=== PATIENT | female | born 1990 | race Caucasian/White ===

== ENCOUNTER 2019-12-26 07:07 | Inpatient (IN) | payer OTHER ==
[2019-12-26] VITALS (30 sets, daily range): BP systolic 89–127; BP diastolic 51–88; PULSE 63–91; TEMP 97.6–99.1
[~2019-12-26] VITALS: Ht 175.3 cm; Wt 71.8 kg
[~2019-12-26 07:07] MED LIST: MOTRIN 600600 MG/TAB PO; PERCOCET 325 MG1 TA2 PO; SENOKOT S 50 MG1 TAB PO
--- NOTE | 2019-12-26 07:20 | NUR ---
Pt arrives on unit ambulatory with spouse for induction of demise. Changed into clean gown. Pt updated on POC. Oriented to room. Admission assessement completed. Consents signed. IV started in LF. 0745-Dr. De La Vega on unit. Bedside US confirms no cardiac activity. Cytotec placed. See EMAR. Bed locked in low position. Call light within reach. No questions or concerns at this time.
--- NOTE | 2019-12-26 08:05 | NUR ---
Kailey with SS and LUIS ALFREDO Krameroracle analyst notified of pt admission.
[2019-12-26 09:32] LABS: BASO % 0.3 % (0.0-2.0); EOS # 0.1 (0.0-0.7); EOS % 1.2 % (0-4.0); GRAN # 4.2 (1.4-6.5); GRAN % 61.8 % (42.2-75.2); HEMOGLOBIN 11.4 g/dl (12.5-16.0); LYMPH % 28.7 % (20.0-51.0); MEAN CELL VOLUME 87 fl (80.0-100.0); MEAN CORPUSCULAR HEMOGLOBIN 29 pg (27.0-31.0); MEAN CORPUSCULAR HGB CONC 34 g/dl (33.0-37.0); MEAN PLATELET VOLUME 12.8 fl (7.4-10.4); MONO # 0.5 (0.1-0.6); MONO % 7.3 % (1.7-9.3); PLATELET COUNT 131 K/mm3 (130-400); RED BLOOD COUNT 3.88 M/mm3 (4.10-5.30); REDCELL DISTRIBUTION WIDTH-CV 12.3 % (11.5-14.5)
[2019-12-26 09:34] LABS: HEMATOCRIT 33.8 % (37.0-47.0)
[2019-12-26 09:45] LABS: ALBUMIN 4.1 gm/dL (3.5-5.0); BILIRUBIN,TOTAL 0.9 mg/dL (0.0-1.0); CALCIUM 9.3 mg/dL (8.4-10.2); CREATININE, serum 0.41 (0.52-1.25); POTASSIUM 3.7 mmol/L (3.4-5.0); TOTAL PROTEIN 7.2 gm/dL (6.4-8.2)
[2019-12-26 10:14] LABS: THYROID STIMULATING HORMONE 3.14 uIU/mL (0.465-4.680)
--- NOTE | 2019-12-26 21:00 | NUR ---
1829- Report from John,LUIS ALFREDO. 1899- Patient has complaints of moderate cramping. 1929- at bedside. Cytotec placed by . SVE Closed/-3. Plan of care discussed with patient and spouse. 2014- SROM. Large amount of clear, odorless fluid noted. Patient refuses SVE at this time. MD updated. 2039- RN at bedside. Patient has complaints of pain that comes and goes and can become intense. Pain management options discussed and patient would like to wait at this time. Patient requesting to void. TOCO removed. 2044- of non-viable male infant in specimen container (hat) while on the toilet. RN at patient's side. Lotus, Nursery RN comforts patient. Patient's called to her side. Placenta still attached by umbilical cord. While ambulating patient back to bed, umbilical cord torn. 2047- See Physician Notification. 2057- Quality Process Auditor notified of Demise delivery. 2099- at bedside. Delivery room set up for delivery of placenta. Patient coached by on pushing for spontaneous delivery of placenta. Clots noted while pushing. 2106- Spontaneous delivery of intact placenta. Pitocin on and infusing at 333 ml/hr per protocol. Perineum intact. Pericare completed. 2118- Quality Process Auditor notified of weight.
--- NOTE | 2019-12-26 21:50 | NUR ---
MTN notified of demise reference #[id number].
--- NOTE | 2019-12-26 22:30 | NUR ---
Patient ambulatory to restroom to void. Patient ambulated to PP room.
[2019-12-27] VITALS: BP 94/44; PULSE 65; TEMP 98.7
[2019-12-27 04:00] VITALS: BP 97/60; PULSE 69; TEMP 98.5
[2019-12-27] MEDS ORDERED: IBU800 M1 PO (07:20)
[2019-12-27 07:38] VITALS: BP 98/51; PULSE 76; TEMP 97.6
[2019-12-27 12:14] LABS: LUPUS ANTICOAGULANT PT 12.5 Seconds (())
[2019-12-28 03:46] LABS: BETA-2 GPI IGG AABS <20.0 CU (<=20.0); BETA-2 GPI IGM AABS <20.0 CU (<=20.0)
[2019-12-31 13:14] LABS: RPR (VDRL) XXX
[2020-01-01 06:28] LABS: TOXOPLASMA AB, IGG <3.0 IU/mL (0.0-7.1); TOXOPLASMA AB, IGM <3.0 AU/mL (0.0-7.9); TOXOPLASMA IGG VALUE Negative (Negative); TOXOPLASMA IGM VALUE Negative (Negative)
== END 2019-12-27 09:10 | disposition home or self-care (01) | DRG 807 ==
LOC: LDR 07:07 → OB 22:30
PROVIDERS: ADMIT Student in an Organized Health Care Education/Training Program
PROC: 10E0XZZ Delivery of Products of Conception, External Approach (ICD-10-PCS; principal; 2019-12-26)
PROC: 3E0P7GC Introduction of Other Therapeutic Substance into Female Reproductive, Via Natural or Artificial Opening (ICD-10-PCS; 2019-12-26)
DX: O36.80X0 Pregnancy with inconclusive fetal viability, not applicable or unspecified (principal); Z37.1 Single stillbirth; O99.62 Diseases of the digestive system complicating childbirth; K21.9 Gastro-esophageal reflux disease without esophagitis; O34.211 Maternal care for low transverse scar from previous cesarean delivery; Z3A.16 16 weeks gestation of pregnancy
CPT/HCPCS: J2590; J7120